=== PATIENT | female | born 1970 | race Hispanic/Latino ===

== ENCOUNTER 2018-03-22 13:43 | Observation (INO) | payer BC ==
[~2018-03-22] VITALS: Ht 157.5 cm; Wt 60.8 kg
[2018-03-22] MEDS ORDERED: SODIUM CHLORIDE 0.9% 1000ML 1,000 ML IV STA (14:01)
[2018-03-22] MEDS ORDERED: MORPHINE SULFATE 4 MG/ML SYR IV STA (14:01)
[2018-03-22 14:09] LABS: BASOPHILS % 0.3 % (0.0-1.0); HEMATOCRIT 38.4 % (34.2-44.1); HEMOGLOBIN 12.4 g/dL (12.0-16.0); LYMPHOCYTES # (AUTO) 0.8 (1.0-3.2); LYMPHOCYTES % 6.9 % (18.0-39.1); MEAN CORPUSCULAR HEMOGLOBIN 28.2 pg (28-32); MEAN CORPUSCULAR HGB CONC 32.3 g/dL (31-35); MEAN CORPUSCULAR VOLUME 87.3 fL (81-99); MONOCYTES # (AUTO) 0.1 (0.2-0.8); MONOCYTES % 0.8 % (4.4-11.3); NEUTROPHILS # (AUTO) 10.9 (2.1-6.9); NEUTROPHILS % 91.6 % (38.7-80.0); PLATELET COUNT 356 x10e3/uL (140-360); RED CELL DISTRIBUTION WIDTH 13.2 % (11.7-14.4)
[2018-03-22] MEDS ORDERED: LORAZEPAM INJ 2 MG/ML VIAL IV ONE (14:15)
[2018-03-22 14:22] LABS: ALANINE AMINOTRANSFERASE 16 IU/L (0-55); ALBUMIN 4.1 g/dL (3.5-5.0); ALBUMIN/GLOBULIN RATIO 1.1 (0.8-2.0); ALKALINE PHOSPHATASE 65 IU/L (40-150); BLOOD UREA NITROGEN 15 mg/dL (7-26); BUN/CREATININE RATIO 14 (6-25); CALCIUM 9.3 mg/dL (8.4-10.2); CARBON DIOXIDE 25 mmol/L (22-29); CHLORIDE 105 mmol/L (98-107); CREATININE, SERUM 1.05 mg/dL (0.57-1.11); EST GLOMERULAR FILTRATION RATE 56 ML/MIN (60-); GLUCOSE 138 mg/dL (74-118); MAGNESIUM 2.1 MG/DL (1.3-2.1); SODIUM 142 mmol/L (136-145)
[2018-03-22 14:30] LABS: HCG,QUANTITATIVE < 1.20 mIU/mL (0-10)
[2018-03-22] MEDS ORDERED: MORPHINE SULFATE 2 MG/ML SYR IV NR (14:30)
[2018-03-22 14:35] LABS: CLARITY,URINE CLOUDY (CLEAR); COLOR,URINE RED (YELLOW)
[2018-03-22 14:36] LABS: BILIRUBIN,URINE NEGATIVE (NEGATIVE); KETONES,URINE 2+ (NEGATIVE); LEUKOCYTE ESTERASE ,URINE TRACE (NEGATIVE); NITRITE,URINE NEGATIVE (NEGATIVE); PROTEIN,URINE DIPSTICK 2+ (NEGATIVE); RBC,URINE >50 /HPF (0-5); URINE UROBILINOGEN 0.2 mg/dL (0.2 - 1); WBC,URINE (MAN) 0-5 /HPF (0-5)
[2018-03-22] MEDS ORDERED: ONDANSETRON HCL 4 MG ORAL DISINTEGRATING TAB PO ONE (14:45)
[2018-03-22] MEDS ORDERED: HYDROMORPHONE 1MG/1ML INJ IV STA (15:01)
--- NOTE | 2018-03-22 15:40 | Diagnostic Imaging Report ---
PROCEDURE: CT ABDOMEN AND PELVIS WITHOUT CONTRAST COMPARISON:None. INDICATIONS:RIGHT FLANK PAIN TECHNIQUE: Axial CT images through the abdomen and pelvis were obtained without intravenous contrast. Coronal and sagittal reformations were created. FINDINGS: Right kidney: Edematous. The collecting system is distended. There is no perinephric or periureteric inflammation. Calculus in the distal right ureter measures 6 mm. There are no intrarenal calculi. No renal mass. Left kidney: Multiple intrarenal calculi measure 5 mm or less. The kidney is lobulated in contour suggestive of scarring. No perinephric inflammation. No calculi the ureters. Bladder: No evidence of calculus or mural thickening. No perivesicular inflammation. Liver: Normal attenuation without mass.. Spleen: Contains a punctate calcified granuloma. Biliary: Gallbladder and biliary tree are normal. Pancreas: Normal attenuation without mass or ductal dilatation. Adrenal Glands: No mass Vasculature: Normal morphology. GI: The stomach, small bowel, and large bowel are normal in diameter and wall thickness. The appendix is nonvisualized and may be absent or collapsed. Peritoneum/Retroperitoneum: No free fluid or fluid collection. Reproductive organs: Normal MSK: There are bilateral pars defects of L5 with grade 1 anterolisthesis of L5 on S1. Lung bases: Clear. CONCLUSION: 1. Obstructing calculus in the distal right ureter. 2. Multiple left intrarenal calculi and renal cortical scarring suggestive of previous bouts of inflammation or obstruction. 3. No bowel obstruction or inflammation. Nonvisualization of the appendix. Dictated by: Briana Francisco M.D. on 03/22/2018 at 15:41 Electronically approved by: Briana Francisco M.D. on 03/22/2018 at 15:41
[2018-03-22] MEDS ORDERED: MORPHINE SULFATE 2 MG/ML SYR IV PRN (16:15)
[2018-03-22] MEDS ORDERED: HYDROMORPHONE 1MG/1ML INJ IV PRN (16:15)
[2018-03-22] MEDS ORDERED: CEFTRIAXONE SOD 1 GM VIAL IM ONE (16:15)
[2018-03-22] MEDS ORDERED: ONDANSETRON HCL INJ 2 MG/ML VIAL IV PRN (16:15)
[2018-03-22] MEDS ORDERED: ONDANSETRON HCL 4 MG ORAL DISINTEGRATING TAB SL PRN (16:45)
[2018-03-22] MEDS: CEFTRIAXONE SOD 1 GM VIAL IV SCH (16:55)
[2018-03-22] MEDS ORDERED: SODIUM CHLORIDE 0.9% 1000ML 1,000 ML IV SCH (17:00)
[2018-03-22] MEDS ORDERED: DEXTROSE 5%/0.45% SOD CHL 1,000 ML IV ONE (17:30)
--- OUTSIDE RECORDS SUMMARY | 2018-03-22 17:35 | XMS REPORT ---
Author Author [facility] Address Unknown Phone Unavailable Care Team Providers Care Systems Lead Name Role Phone CLYDE JUAREZ Unavailable Unavailable Problems This patient has no known problems. Allergies, Adverse Reactions, Alerts This patient has no known allergies or adverse reactions. Medications This patient has no known medications. Results Test Description Test Time Test Comments Text Results Atomic Results Result Comments CT ABDOMEN/PELVIS WO [place] [address] Patient Name: YOSELIN ZAPATA MR #: [id number] : 1970 Age/Sex: 47/F Req # : [id number] Adm Physician: Ordered by: MICAH CHING [employer] Report #: [id number] Location: ER Room/Bed: Procedure: [id number] CT/CT ABDOMEN/PELVIS WO Exam Date: 03/22/18 Exam Time: 1515 REPORT STATUS: Signed PROCEDURE: CT ABDOMEN AND PELVIS WITHOUT CONTRAST COMPARISON: None. INDICATIONS: RIGHT FLANK PAIN TECHNIQUE: Axial CT images through the abdomen and pelvis were obtained without intravenous contrast. Coronal and sagittal reformations were created. FINDINGS: Right kidney: Edematous. The collecting system is distended. There is no perinephric or periureteric inflammation. Calculus in the distal right ureter measures 6 mm. There are no intrarenal calculi. No renal mass. Left kidney: Multiple intrarenal calculi measure 5 mm or less. The kidney is lobulated in contour suggestive of scarring. No perinephric inflammation. No calculi the ureters. Bladder: No evidence of calculus or mural thickening. No perivesicular inflammation. Liver: Normal attenuation without mass.. Spleen: Contains a punctate calcified granuloma. Biliary: Gallbladder and biliary tree are normal. Pancreas: Normal attenuation without mass or ductal dilatation. Adrenal Glands: No mass Vasculature: Normal morphology. GI: The stomach, small bowel, and large bowel are normal in diameter and wall thickness. The appendix is nonvisualized and may be absent or collapsed. Peritoneum/Retroperitoneum: No free fluid or fluid collection. Reproductive organs: Normal MSK: There are bilateral pars defects of L5 with grade 1 anterolisthesis of L5 on S1. Lung bases: Clear. CONCLUSION: 1. Obstructing calculus in the distal right ureter. 2. Multiple left intrarenal calculi and renal cortical scarring suggestive of previous bouts of inflammation or obstruction. 3. No bowel obstruction or inflammation. Nonvisualization of the appendix. Dictated by: Dangelo Francisco M.D. on 03/22/2018 at 15:41 Electronically approved by: Dangelo Francisco M.D. on 03/22/2018 at 15: 41 Dictated By: DANGELO FRANCISCO MD [id number] Transcribed By: WICHO on 03/22/18 1541 COPY TO: MICAH CHING NP
--- NOTE | 2018-03-22 18:19 | Consultation ---
DATE OF CONSULTATION: March 22, 2018 UROLOGICAL CONSULTATION CONSULTATION TO: Dr. Carrillo Holguin. HISTORY: A 47-year-old female seen in the emergency room with severe pain right flank radiating to the right lower quadrant. Patient stated the pain started today. The patient states that she had not experienced any pain until the pain started late this afternoon, with the pain becoming so severe that she could not stand it and she came to the emergency room. CT scan was performed. She has stones on the right side as well as the left side. On the right side, the patient has a right-sided distal ureteral calculus producing severe hydroureteronephrosis. She has stones on the contralateral kidney as well. These are causing no pain. PAST UROLOGICAL HISTORY: Passed a kidney stone approximately 4 years ago. MEDICATIONS: Metoprolol for high blood pressure. SOCIAL HISTORY: . No drugs. No alcohol. No smoking. IMPRESSION: A high degree of obstruction with hydroureter and hydronephrosis. RECOMMENDATION: We will see if the patient can pass the stone on her own today. I doubt it very much. She has severe hydroureteronephrosis consistent with chronic dilatation. I think the stone is finally impacted. I discussed ureteroscopy tomorrow, and she agrees. Would proceed with ureteroscopy, cystoscopy, retrograde pyelogram, laser lithotripsy and stone extraction. Job#: [id number]
[2018-03-22 20:00] VITALS: BP 103/64
[2018-03-22] MEDS ORDERED: HYDROMORPHONE 2MG/ML INJ IV PRN (20:30)
[2018-03-23] VITALS: BP 92/65
[2018-03-23 04:00] VITALS: BP 95/66
[2018-03-23] MEDS: CEFTRIAXONE SOD 1 GM VIAL IV SCH ×2 (05:44→15:46)
[2018-03-23 07:43] VITALS: BP 97/63
[2018-03-23 11:25] VITALS: BP 137/71
[2018-03-23] MEDS ORDERED: ACETAMINOPHEN 325 MG TAB PO PRN (12:45)
[2018-03-23 15:32] VITALS: BP 129/67
[2018-03-23 15:33] VITALS: BP 129/67
[2018-03-23] MEDS ORDERED: IOPAMIDOL 610MG/1ML 300 MG/ML VIAL IV ONE ×2 (15:37→15:53)
[2018-03-23] MEDS ORDERED: BELLADONNA/OPIUM 60 MG SUPP PR ONE (15:37)
[2018-03-23] MEDS ORDERED: METOPROLOL SUCC50 MG PO (15:51)
--- NOTE | 2018-03-23 18:14 | Operative Report ---
DATE OF PROCEDURE: March 23, 2018 PREOPERATIVE DIAGNOSIS: Right distal ureteral calculi with hydroureteronephrosis. POSTOPERATIVE DIAGNOSIS: Right distal ureteral calculi with hydroureteronephrosis. OPERATION PERFORMED: Cystoscopy with retrograde pyelogram and placement of double J. Outcome the procedure related to laser machine blowing up. No untoward effect was made to the patient. Unfortunately, the laser could not be used because it blew up. FINDINGS: Normal urethra. Normal bladder neck. Cystitis cystica present around the trigone. Ureteral orifice normal on the left. On the right, the intramural portion was beefy red. Ureteroscopy revealed a stone above the ureterovesical junction. The double J was placed in. PROCEDURE: With the patient under satisfactory general anesthesia, the patient was placed in the supine position on the operating room table and legs were placed on stirrups. Genitalia was then prepped with Betadine soap and solution and draped in the usual manner. A number 22-Nigerien cystourethroscope was passed into the bladder. The bladder was inspected. Retrograde pyelogram was obtained, right and left, with a number 8 cone-tipped ureteral catheter. The stone was visualized. At this point, a guidewire was introduced all the way up to the kidney and the semirigid ureteroscope was passed per urethra up to the ureter and up to the stone. At that point, the laser which was not connected to the patient upon hooking it up to the electrical current essentially blew up. At that point, with inability to use the laser and over the guidewire that was present a 6-Nigerien K wire universal double J was placed all the way up to the kidney, coiled up in the kidney. The guidewire was removed. The double J was then coiled in the bladder. The sleeve was used to disengage the pusher and leave the double J in place. I went to the family and told them of the problem with the machine, the laser. We discussed when would be the next time to bring her back and break up the stone and I them that would depend on when the machine would be available. At this point, the patient went to the recovery room in satisfactory condition. DISCHARGE INSTRUCTIONS: She was given Myrbetriq 50 mg to take daily, Macrobid to take daily and I will see her in the office, and determine when we will bring her back to take care of the stone. Job#: [id number] GH
--- NOTE | 2018-03-23 18:21 | Diagnostic Imaging Report ---
PROCEDURE: X-RAY RETROGRADE PYELOGRAM COMPARISON: CT of the abdomen and pelvis from 03/22/2018 INDICATIONS: Right distal ureteral stone. FINDINGS: Multiple intraoperative spot images of the abdomen and pelvis were obtained. There is retrograde cannulization of both ureters with contrast injection. A small filling defect in the right distal ureter represents the known right distal ureteral stone. There is a mild right hydronephrosis and hydroureter. The final images show placement of a right double-J nephroureteral stent with near complete resolution of right hydronephrosis. The left-sided calyces and ureter appear unremarkable. Cumulative fluoro time: 8 seconds Cumulative area dose product: 43.48 cGycm2 Cumulative air kerma: 1.18 mGy CONCLUSION: Retrograde pyelogram as described above. Dictated by: Destin Ellington M.D. on 03/23/2018 at 18:23 Electronically approved by: Destin Ellington M.D. on 03/23/2018 at 18:23
[2018-03-23] MEDS ORDERED: DEXAMETHASONE SOD PHOS INJ 4 MG/ML VIAL ONE (18:23)
[2018-03-23] MEDS ORDERED: SEVOFLURANE INHAL SOLN 250 ML PEN BTL ONE (18:23)
[2018-03-23] MEDS ORDERED: ONDANSETRON HCL INJ 2 MG/ML VIAL ONE (18:23)
[2018-03-23] MEDS ORDERED: LIDOCAINE HCL 2% LOCAL INJ 5 ML SDV VIAL INJ ONE (18:23)
[2018-03-23] MEDS ORDERED: PROPOFOL IV EMULSION 10 MG/ML 20 ML VIAL ONE (18:23)
[2018-03-23] MEDS ORDERED: FENTANYL CITRATE/PF 100MCG/2 ML INJ ONE (18:45)
[2018-03-23] MEDS ORDERED: MIDAZOLAM HCL 2 MG/2 ML VIAL ONE (18:45)
[2018-03-24] MEDS ORDERED: METOPROLOL SUCCINATE 50 MG TAB XL PO SCH (09:00)
== END 2018-03-23 18:04 | disposition home or self-care (01) ==
LOC: ER 13:43 → ERHOLD 17:31 → IMCU 19:51
PROVIDERS: ADMIT Internal Medicine; ATTEND Internal Medicine
DX: N13.2 Hydronephrosis with renal and ureteral calculous obstruction (principal)
CPT/HCPCS: 36415; 52332; 74176; 74420; 80053; 81001; 83605; 83735; 84702; 85025; 99284; C1758; G0378 ×2; J0696 ×2; J1100; J1170 ×2; J2001; J2060; J2250; J2270; J2405; J7030; Q9967